=== PATIENT | male | born 1970 | race American Indian/Alaskan Native ===

== ENCOUNTER 2018-09-24 20:54 | Emergency (ER) | payer OTHER ==
[2018-09-24 21:06] VITALS: BP 103/61
--- NOTE | 2018-09-24 21:13 | Emergency Department Report ---
Blank Doc - Documentation Documentation: This is a 48-year-old male that presents with foreign body to left leg. Stated a stick is stuck in the leg. Denies being UTD with tetanus. This initial assessment/diagnostic orders/clinical plan/treatment(s) is/are subject to change based on patient's health status, clinical progression and re- assessment by fellow clinical providers in the ED. Further treatment and workup at subsequent clinical providers discretion. Patient/guardians urged not to elope from the ED as their condition may be serious if not clinically assessed and managed. Initial orders include: 1- Patient sent to [facility] for further evaluation and treatment 2- xray 3- tetanus
--- NOTE | 2018-09-24 22:15 | XRay Report ---
PROCEDURE: XR TIBIA FIBULA 2V LT TECHNIQUE: AP and lateral views of the left tibia and fibula HISTORY: Left tibia and fibula pain r/o foreign body COMPARISONS: None . FINDINGS: There is no evidence for acute fracture or dislocation. No soft tissue swelling or radiopaque foreign bodies are seen. Bony mineralization is normal and joint spaces are maintained. IMPRESSION: No acute bony or soft tissue abnormality noted. This document is electronically signed by Nia Denny MD., September 24 2018 10:13:33 PM ET
--- NOTE | 2018-09-25 00:26 | Emergency Department Report ---
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 complaint: foreign body -: hour(s) (2PTA) Location: LLE Severity scale (0 -10): 8 Quality: sharp Consistency: constant Improves with: none Worsens with: palpation Associated symptoms: denies other symptoms - Related Data Previous Rx's Medication Instructions Recorded Last Taken Type Ibuprofen [Motrin 600 MG tab] 600 mg PO Q8H #15 tablet 09/25/18 Unknown Rx Allergies Allergy/AdvReac Type Severity Reaction Status Date / Time No Known Allergies Allergy Unverified 09/24/18 21:13 Abscess Boil HPI - HPI Chief Complaint: Skin/Abscess/Foreign Body Stated Complaint: STICK STUCK IN LEFT LEG Time Seen by Provider: 09/24/18 21:11 Home Medications: Previous Rx's Medication Instructions Recorded Last Taken Type Ibuprofen [Motrin 600 MG tab] 600 mg PO Q8H #15 tablet 09/25/18 Unknown Rx Allergies/Adverse Reactions: Allergies Allergy/AdvReac Type Severity Reaction Status Date / Time No Known Allergies Allergy Unverified 09/24/18 21:13 ED Review of Systems ROS: Stated complaint: STICK STUCK IN LEFT LEG Other details as noted in HPI Comment: All other systems reviewed and negative ED Past Medical Hx - Past Medical History Previous Medical History?: No - Surgical History Past Surgical History?: No - Social History Smoking Status: Never Smoker Substance Use Type: None - Medications Home Medications: Home Medications Medication Instructions Recorded Confirmed Last Taken Type Ibuprofen [Motrin 600 MG tab] 600 mg PO Q8H #15 tablet 09/25/18 Unknown Rx ED Physical Exam - General Limitations: No Limitations General appearance: alert, in no apparent distress - Head Head exam: Present: atraumatic, normocephalic - Eye Eye exam: Present: normal appearance - ENT ENT exam: Present: mucous membranes moist - Neck Neck exam: Present: normal inspection - Respiratory Respiratory exam: Present: normal lung sounds bilaterally. Absent: respiratory distress - Cardiovascular Cardiovascular Exam: Present: regular rate, normal rhythm. Absent: systolic murmur, diastolic murmur, rubs, gallop - GI/Abdominal GI/Abdominal exam: Present: soft, normal bowel sounds - Extremities Exam Extremities exam: Present: normal inspection - Back Exam Back exam: Present: normal inspection - Neurological Exam Neurological exam: Present: alert, oriented X3 - Psychiatric Psychiatric exam: Present: normal affect, normal mood - Expanded Skin Exam Expanded Type of lesion: Present: foreign body Distribution of rash: LLE Description of rash: Present: size (3cm), tenderness ED Course Vital Signs 09/24/18 09/24/18 21:04 21:12 Temperature 98.8 F 98.1 F Pulse Rate 90 89 Respiratory 18 18 Rate Blood Pressure 103/61 103/61 O2 Sat by Pulse 98 98 Oximetry - Procedure Description Procedures done: Foreign body removal from left lower lateral leg. Patient's wound was cleaned with Betadine and numbed with lidocaine with epi scalpel used to make a small incision used forceps to remove the splinter placed 2 sutures to laceration. Patient tolerated procedure well ED Medical Decision Making - Radiology Data Radiology results: report reviewed Patient: GUS RAMÍREZ MR#: [id number] : 1970 Acct:[id number] Age/Sex: 48 / M ADM Date: 09/24/18 Loc: ED Attending Dr: Ordering Physician: KELVIN CUEVAS NP Date of Service: 09/24/18 Procedure(s): XR tibia fibula 2V LT Accession Number(s): [id number] cc: KELVIN CUEVAS NP Fluoro Time In Minutes: PROCEDURE: XR TIBIA FIBULA 2V LT TECHNIQUE: AP and lateral views of the left tibia and fibula HISTORY: Left tibia and fibula pain r/o foreign body COMPARISONS: None . FINDINGS: There is no evidence for acute fracture or dislocation. No soft tissue swelling or radiopaque foreign bodies are seen. Bony mineralization is normal and joint spaces are maintained. IMPRESSION: No acute bony or soft tissue abnormality noted. This document is electronically signed by Nia Lott MD., September 24 2018 10:13:33 PM ET Transcribed By: [facility] Dictated By: NIA LOTT MD Electronically Authenticated By: NIA LOTT MD Signed Date/Time: 09/24/182214 DD/ 12 TD/TT: 09/24/182205 Critical care attestation.: If time is entered above; I have spent that time in minutes in the direct care of this critically ill patient, excluding procedure time. ED Disposition Clinical Impression: Splinter of lower extremity Qualifiers: Encounter type: initial encounter Laterality: left Qualified Code(s): S80.852A - Superficial foreign body, left lower leg, initial encounter Disposition: TO HOME OR SELFCARE Is pt being admited?: No Does the pt Need Aspirin: No Condition: Stable Instructions: Soft Tissue Foreign Body (ED) Additional Instructions: Take pain medication as needed return 5-7 days to have sutures removed. Prescriptions: Ibuprofen [Motrin 600 MG tab] 600 mg PO Q8H #15 tablet Forms: Work/School Release Form(ED), Accompanied Note
[2018-09-25] MEDS ORDERED: BOOSTRIX IM ONE (01:02)
[2018-09-25] MEDS ORDERED: IBUPROFEN PO ONE (01:07)
== END 2018-09-25 01:39 | disposition home or self-care (01) ==
LOC: ED 20:54
DX: S80.852A Superficial foreign body, left lower leg, initial encounter (principal); W22.8XXA Striking against or struck by other objects, initial encounter; Y93.89 Activity, other specified; Y92.69 Other specified industrial and construction area as the place of occurrence of the external cause; Y99.0 Civilian activity done for income or pay
CPT/HCPCS: 90471; 90715; 99283

== ENCOUNTER 2018-10-04 10:06 | Emergency (ER) | payer SELFPAY ==
[2018-10-04 10:13] VITALS: BP 97/62
--- NOTE | 2018-10-04 10:27 | Emergency Department Report ---
HPI - General Chief Complaint: Laceration/Recheck/Suture Time Seen by Provider: 10/04/18 10:22 - HPI HPI: 48-year-old male presents to the emergency department for suture removal from his left calf. He was here on 09/25 and had some type of splinter or wood embedded that was removed and the sutures were placed. He has had no complications. He denies any swelling, redness, pain, fever. ED Past Medical Hx - Past Medical History Previous Medical History?: No - Surgical History Past Surgical History?: No - Social History Smoking Status: Never Smoker Substance Use Type: None - Medications Home Medications: Home Medications Medication Instructions Recorded Confirmed Last Taken Type Ibuprofen [Motrin 600 MG tab] 600 mg PO Q8H #15 tablet 09/25/18 Unknown Rx ED Review of Systems ROS: Stated complaint: SUTURE REMOVAL Other details as noted in HPI Comment: All other systems reviewed and negative Constitutional: denies: chills, fever Musculoskeletal: denies: joint swelling, arthralgia Skin: other (laceration). denies: change in color Neurological: denies: numbness, paresthesias Physical Exam - Physical Exam Vital Signs: Vital Signs 10/04/18 10:11 Temperature 99.8 F H Pulse Rate 73 Respiratory 16 Rate Blood Pressure 97/62 [Left] O2 Sat by Pulse 99 Oximetry Physical Exam: GENERAL: The patient is well-developed well-nourished. HENT: Normocephalic. Atraumatic. Patient has moist mucous membranes. EYES: Extraocular motions are intact. NECK: Supple. Trachea is midline. CHEST/LUNGS: Clear to auscultation. There is no respiratory distress noted. HEART/CARDIOVASCULAR: Regular. There is no tachycardia. There is no murmur. ABDOMEN: There is no abdominal distention. SKIN: There is a small healing laceration/wound to the left lateral calf with 2 simple interrupted sutures in place. No surrounding erythema. No bleeding. No discharge. NEURO: The patient is awake, alert, and oriented. The patient is cooperative. The patient has normal speech. MUSCULOSKELETAL: There is no tenderness or deformity. There is no limitation range of motion. There is no evidence of acute injury. ED Course Vital Signs 10/04/18 10:11 Temperature 99.8 F H Pulse Rate 73 Respiratory 16 Rate Blood Pressure 97/62 [Left] O2 Sat by Pulse 99 Oximetry - Procedure Description Procedures done: 2 simple interrupted sutures were removed from the left lateral calf using forceps and a scalpel. No complications with the procedure. ED Medical Decision Making - Medical Decision Making 2 simple interrupted sutures were removed from the left lateral calf. It has been about 10 days since the patient had sutures placed and there was a small amount of overgrowth of new skin and eschar but otherwise there are no other signs or symptoms of infection at this time. He will return to the ER with any concerns or with any acute distress. Critical Care Time: No Critical care attestation.: If time is entered above; I have spent that time in minutes in the direct care of this critically ill patient, excluding procedure time. ED Disposition Clinical Impression: Encounter for removal of sutures Disposition: - TO HOME OR SELFCARE Is pt being admited?: No Condition: Stable Instructions: Suture Removal (ED) Additional Instructions: Follow-up with your primary care physician. Return to the emergency department with any concerns or with any acute distress. Referrals: Primary Care Provider, Your [Other] - 3-5 Days Time of Disposition: 10:24
== END 2018-10-04 10:29 | disposition home or self-care (01) ==
LOC: ED 10:06
DX: S81.812D Laceration without foreign body, left lower leg, subsequent encounter (principal); W26.8XXD Contact with other sharp object(s), not elsewhere classified, subsequent encounter

== ENCOUNTER 2019-08-12 02:35 | Emergency (ER) | payer SELFPAY ==
[2019-08-12 02:43] VITALS: BP 113/56
== END 2019-08-12 03:00 | disposition left against medical advice (07) ==
LOC: ED 02:35
DX: R11.0 Nausea (principal); Z53.21 Procedure and treatment not carried out due to patient leaving prior to being seen by health care provider

== ENCOUNTER 2019-08-12 07:29 | Emergency (ER) | payer BC ==
[2019-08-12 07:53] VITALS: BP 116/69
--- NOTE | 2019-08-12 09:33 | Emergency Department Report ---
ED General Adult HPI - General Chief complaint: Nausea/Vomiting/Diarrhea Stated complaint: ILLNESS Time Seen by Provider: 08/12/19 09:26 Source: patient Mode of arrival: Ambulatory Limitations: No Limitations - History of Present Illness Initial comments: This pleasant 49-year-old male presents the emergency department with a chief complaint of an episode of jitteriness yesterday with an episode of diarrhea after eating fish at work. He also reports he has been having some itchy bumps to his right shoulder. He told his boss at work this and his boss sent to the emergency department for evaluation and to be cleared to return to work. Patient denies any known past medical history, current medication use or known allergies to medications. He denies any recent sick contacts. He denies any associated fever, chills, night sweats, headache, dizziness, blurry vision, nausea, vomiting, melena, hematochezia, cough, congestion or any other associa jo symptoms. He denies any recent travel. - Related Data Previous Rx's Medication Instructions Recorded Last Taken Type Ibuprofen [Motrin 600 MG tab] 600 mg PO Q8H #15 tablet 09/25/18 Unknown Rx methylPREDNISolone [Medrol 4MG 4 mg PO ONCE #1 tab.ds.pk 08/12/19 Unknown Rx DOSEPAK (21 tabs)] Allergies Allergy/AdvReac Type Severity Reaction Status Date / Time No Known Allergies Allergy Unverified 09/24/18 21:13 ED Review of Systems ROS: Stated complaint: ILLNESS Other details as noted in HPI Comment: All other systems reviewed and negative Constitutional: denies: chills, fever Eyes: denies: eye pain, eye discharge, vision change ENT: denies: ear pain, throat pain Respiratory: denies: cough, shortness of breath, wheezing Cardiovascular: denies: chest pain, palpitations Endocrine: no symptoms reported Gastrointestinal: as per HPI, diarrhea. denies: abdominal pain, nausea Genitourinary: denies: urgency, dysuria Musculoskeletal: denies: back pain, joint swelling, arthralgia Skin: denies: rash, lesions Neurological: denies: headache, weakness, paresthesias Psychiatric: denies: anxiety, depression Hematological/Lymphatic: denies: easy bleeding, easy bruising ED Past Medical Hx - Past Medical History Previous Medical History?: No - Surgical History Past Surgical History?: No - Social History Smoking Status: Never Smoker Substance Use Type: Marijuana - Medications Home Medications: Home Medications Medication Instructions Recorded Confirmed Last Taken Type Ibuprofen [Motrin 600 MG tab] 600 mg PO Q8H #15 tablet 09/25/18 Unknown Rx methylPREDNISolone [Medrol 4MG 4 mg PO ONCE #1 tab.ds.pk 08/12/19 Unknown Rx DOSEPAK (21 tabs)] ED Physical Exam - General Limitations: No Limitations General appearance: alert, in no apparent distress - Head Head exam: Present: atraumatic, normocephalic - Eye Eye exam: Present: normal appearance, PERRL, EOMI Pupils: Present: normal accommodation - ENT ENT exam: Present: normal exam, normal orophraynx, mucous membranes moist - Neck Neck exam: Present: normal inspection, full ROM. Absent: tenderness, meningismus - Respiratory Respiratory exam: Present: normal lung sounds bilaterally. Absent: respiratory distress, wheezes, rales, rhonchi, stridor - Cardiovascular Cardiovascular Exam: Present: regular rate, normal rhythm, normal heart sounds. Absent: systolic murmur, diastolic murmur, rubs, gallop - GI/Abdominal GI/Abdominal exam: Present: soft, normal bowel sounds, other (Negative McBurney's point tenderness, negative Alfaro sign). Absent: distended, tenderness, guarding, rebound, rigid - Rectal Rectal exam: Present: deferred - Extremities Exam Extremities exam: Present: normal inspection, full ROM. Absent: tenderness, calf tenderness - Back Exam Back exam: Present: normal inspection, full ROM. Absent: tenderness, CVA tenderness (R), CVA tenderness (L) - Neurological Exam Neurological exam: Present: alert, oriented X3 - Psychiatric Psychiatric exam: Present: normal affect, normal mood - Skin Skin exam: Present: warm, dry, intact, normal color, rash (Multiple raised flesh-colored papules. No induration, erythema. No vesicles. No obvious pattern. No oral lesions.) ED Course Vital Signs 08/12/19 07:51 Temperature 99.2 F Pulse Rate 101 H Respiratory 18 Rate Blood Pressure 116/69 O2 Sat by Pulse 99 Oximetry ED Medical Decision Making - Medical Decision Making Patient presented to the ER needing clearance to return to work. He reported one episode of nonbloody diarrhea yesterday after eating fish and episode of jitteriness. He also reports a rash that has been ongoing for the past few weeks. Plan to treat him with a Medrol Dosepak and recommended antihistamines for itching. The patient had no signs or symptoms of an infectious illness at this time and no recent sick contacts. The patient is stable to return to work today. Recommend primary care follow-up return to the ER with any change or worsening symptoms. He verbalized understanding the diagnosis, treatment plan and follow-up instructions all of his questions were answered. - Differential Diagnosis contact dermatitis, pitarysis rosea, mollescum contagiosum Critical care attestation.: If time is entered above; I have spent that time in minutes in the direct care of this critically ill patient, excluding procedure time. ED Disposition Clinical Impression: Rash and nonspecific skin eruption Diarrhea Qualifiers: Diarrhea type: unspecified type Qualified Code(s): R19.7 - Diarrhea, unspecified Disposition: DC-01 TO HOME OR SELFCARE Is pt being admited?: No Condition: Stable Instructions: Nutrition Tips for Relief of Diarrhea (ED) Prescriptions: methylPREDNISolone [Medrol 4MG DOSEPAK (21 tabs)] 4 mg PO ONCE #1 tab.ds.pk Referrals: PRIMARY CARE, [Primary Care Provider] - 3-5 Days [facility] [Provider Group] - 3-5 Days Forms: Work/School Release Form(ED) Time of Disposition: 09:32
== END 2019-08-12 09:48 | disposition home or self-care (01) ==
LOC: ED 07:29
DX: R21 Rash and other nonspecific skin eruption (principal); R19.7 Diarrhea, unspecified; F12.10 Cannabis abuse, uncomplicated; Z79.1 Long term (current) use of non-steroidal anti-inflammatories (NSAID); Z79.899 Other long term (current) drug therapy
CPT/HCPCS: 99282

== ENCOUNTER 2020-03-29 10:31 | Emergency (ER) | payer BC ==
[2020-03-29] MEDS ORDERED: LIDOCAINE (2%) 20 MG/1 ML VIAL 20 ML MDV INFILTRATI ONE (14:53)
[2020-03-29] MEDS ORDERED: DIPHtheria,PERTUSSIS(ACELL),TETANUS VACCINE/PF 0.5 ML VIAL IM ONE (14:53)
== END 2020-03-29 21:45 | disposition home or self-care (01) ==
LOC: ED 10:31
DX: S61.411A Laceration without foreign body of right hand, initial encounter (principal); X58.XXXA Exposure to other specified factors, initial encounter; Y93.89 Activity, other specified; Y92.89 Other specified places as the place of occurrence of the external cause; Y99.8 Other external cause status
CPT/HCPCS: 90715; 99281

== ENCOUNTER 2020-04-10 10:55 | Emergency (ER) | payer BC ==
[2020-04-10 11:06] VITALS: BP 107/58
--- NOTE | 2020-04-10 11:20 | Emergency Department Report ---
Suture/Staple Removal - HPI Chief Complaint: Laceration/Recheck/Suture Stated Complaint: SUTURE REMOVAL/RT HAND Time Seen by Provider: 04/10/20 11:13 When Sutures or [place] Placed: 11-14 Days Ago Wound Location: Right middle finger ED Review of Systems ROS: Stated complaint: SUTURE REMOVAL/RT HAND Other details as noted in HPI Comment: All other systems reviewed and negative ED Past Medical Hx - Past Medical History Previous Medical History?: No - Social History Smoking Status: Never Smoker Substance Use Type: Marijuana - Medications Home Medications: Home Medications Medication Instructions Recorded Confirmed Last Taken Type Ibuprofen [Motrin 600 MG tab] 600 mg PO Q8H #15 tablet 09/25/18 Unknown Rx methylPREDNISolone [Medrol 4MG 4 mg PO ONCE #1 tab.ds.pk 08/12/19 Unknown Rx DOSEPAK (21 tabs)] Suture Removal Exam - Exam General: Vital signs noted. No distress. Alert and acting appropriately. Other Systems: All other systems reviewed and are unremarkable. ED Course Vital Signs 04/10/20 11:04 Temperature 98.8 F Pulse Rate 70 Respiratory 18 Rate Blood Pressure 107/58 [Right] O2 Sat by Pulse 99 Oximetry ED Recheck MDM - Differential Diagnosis Suture/Staple Removal Critical care attestation.: If time is entered above; I have spent that time in minutes in the direct care of this critically ill patient, excluding procedure time. ED Disposition Clinical Impression: Visit for suture removal Disposition: DC-01 TO HOME OR SELFCARE Is pt being admited?: No Does the pt Need Aspirin: No Condition: Stable Instructions: Wound Closure Removal, Care After
== END 2020-04-10 11:58 | disposition home or self-care (01) ==
LOC: ED 10:55
DX: T14.8XXD Other injury of unspecified body region, subsequent encounter (principal); Z53.21 Procedure and treatment not carried out due to patient leaving prior to being seen by health care provider